=== PATIENT | male | born 1985 | race Caucasian/White ===

== ENCOUNTER 2024-03-28 18:18 | Emergency (ER) | payer OTHER ==
[2024-03-28 18:33] VITALS: BP 112/75; PULSE 85; RESP 18; TEMP 98.1; BMI 26.5
[2024-03-28 20:58] LABS: HIV INTERPRETATION NEGATIVE (NEGATIVE)
== END 2024-03-28 21:29 | disposition home or self-care (01) ==
LOC: JER 18:18
DX: R00.2 Palpitations (principal); R07.89 Other chest pain
CPT/HCPCS: 36415; 86803; 87389; 93005; 93010; 99284-25